=== PATIENT | female | born 1975 | race Caucasian/White ===

== ENCOUNTER 2019-02-10 05:58 | Inpatient (IN) | payer MEDICARE, MEDICAID ==
[2019-02-10 06:43] LABS: #Eosinphils 0.1 thou/uL (0.0-0.7); #Lymphocytes 2.9 thou/uL (1.20-3.40); #Monocytes 0.5 thou/uL (0.11-0.59); #Neutrophils 4.2 thou/uL (1.40-6.50); %Basophils 0.4 % (0.0-1.0); %Eosinophils 1.6 % (0.0-10.0); %Lymphocytes 37.4 % (21.0-51.0); %Monocytes 6.1 % (0.0-10.0); %Neutrophils 54.5 % (42.0-75.0); Hemoglobin 12.9 g/dL (12.0-16.0); Mean Corpuscular HGB CONC 34.6 g/dL (32.0-36.0); Mean Corpuscular Hemoglobin 30.1 pg (27.0-31.0); Mean Platelet Volume 7.6 fL (7.4-10.4); Platelet Count 286 thou/uL (130-400); RBC Distribution Width 13.2 % (11.5-14.5); Red Blood Cell (RBC) Count 4.27 mill/uL (4.20-5.40); White Blood Cell (WBC) Count 7.7 thou/uL (4.8-10.8)
[2019-02-10] MEDS ORDERED: Sodium Chloride 0.9% 10 ML ONE (06:57)
[2019-02-10 07:00] LABS: Anion Gap 9 mmol/L (10-20); BUN (Urea Nitrogen) 12 mg/dL (7.0-18.7); Calc. Creatinine Clearance 239 mL/min (70-130); Calcium 9.2 mg/dL (7.8-10.44); Carbon Dioxide 28 mmol/L (22-29); Chloride 105 mmol/L (98-107); Estimated GFR-MDRD 78; Glucose 79 mg/dL (70-105); Potassium 3.4 mmol/L (3.5-5.1); Sodium 139 mmol/L (136-145)
[2019-02-10] MEDS ORDERED: Fentanyl 100 MCG/2 ML VIAL ONE ×3 (07:42→09:59)
[2019-02-10] MEDS ORDERED: Ondansetron HCl/PF 4 MG/2 ML Vial IVP PRN ×2 (08:34→10:33)
[2019-02-10] MEDS ORDERED: Promethazine HCl 25 MG/ML VIAL IM PRN ×2 (08:34→09:37)
[2019-02-10] MEDS ORDERED: Meperidine HCl/PF 25 MG/ML VIAL SLOW IVP PRN (08:34)
[2019-02-10] MEDS ORDERED: Promethazine HCl 25 MG/ML VIAL SLOW IVP PRN (08:34)
[2019-02-10] MEDS ORDERED: Ondansetron PF 4 MG/2 ML Vial IM PRN (09:37)
[2019-02-10] MEDS ORDERED: Morphine 4 MG/ML VIAL SLOW IVP PRN ×2 (09:37→10:33)
[2019-02-10] MEDS ORDERED: Promethazine HCl 12.5 MG SUPP PR PRN (09:37)
[2019-02-10] MEDS ORDERED: diphenhydrAMINE 50 MG/ML VIAL IVP PRN (09:37)
[2019-02-10] MEDS ORDERED: diphenhydrAMINE 25 MG CAP PO PRN (09:37)
[2019-02-10] MEDS ORDERED: Mag-Al 1200 mg/1200 mg/30 ML UDCUP PO PRN (09:37)
[2019-02-10] MEDS ORDERED: Milk Of Magnesia 30 ML UDCUP PO PRN (09:37)
[2019-02-10] MEDS ORDERED: traMADol HCl 50 MG TAB PO PRN ×2 (09:37)
[2019-02-10] MEDS ORDERED: Promethazine 25 MG TAB PO PRN (09:37)
[2019-02-10] MEDS ORDERED: HYDROcodone/Acetaminophen 10/325 mg Tablet PO PRN (09:37)
[2019-02-10] MEDS ORDERED: tiZANidine HCl 4 MG TAB PO PRN (09:37)
[2019-02-10] MEDS ORDERED: Morphine 2 MG/ML SYRINGE SLOW IVP PRN (09:42)
[2019-02-10] MEDS ORDERED: Morphine 4 MG/ML VIAL ONE (09:45)
[2019-02-10] MEDS ORDERED: HYDROmorphone 2 MG/ML VIAL SLOW IVP PRN (10:33)
[2019-02-10] MEDS ORDERED: Morphine Sulfate 2 MG/ML SYRINGE SLOW IVP PRN (10:33)
[2019-02-10] MEDS ORDERED: Non-Formulary Medication 1 EACH PO PRN (10:33)
[2019-02-10] MEDS ORDERED: Promethazine HCl 25 MG/ML VIAL IM/IV PRN (10:33)
[2019-02-10] MEDS: HYDROcodone/Acetaminophen 10/325 mg Tablet PO PRN (11:03)
[2019-02-10] MEDS: Sodium Chloride 0.9% 1,000 ML IV SCH ×2 (11:05→23:49)
--- NOTE | 2019-02-10 15:15 | OP ---
DATE OF PROCEDURE: 02/10/2019 [employer] REPAIRER: Yosi Horvath PA-C. PROCEDURES PERFORMED: Right L4-L5 laminectomy, facetectomy, foraminotomy, and diskectomy; interbody arthrodesis; intervertebral biomechanical device; local morselized autograft; demineralized bone matrix; posterolateral arthrodesis; pedicle screw instrumentation L4-L5. DESCRIPTION OF PROCEDURE: The patient was brought to the operating room and intubated. She was rolled in a prone position on gel-filled chest rolls. An incision was made exposing L4 and L5, and the level was confirmed by x-ray. The procedure was very difficult given the patient's very large body habitus. X-rays were quite limited. After identifying the L4-L5 level, we performed a central laminectomy and right L4-L5 laminectomy, facetectomy, and foraminotomy. We identified copious amounts of far-lateral disk herniation in the right L4 neural foramen, which debrided multiple fragments and a complete decompression of right L4 was achieved. Disk itself was then incised and debrided, and the bony endplates decorticated for the purpose of arthrodesis. An appropriate-sized intervertebral biomechanical PEEK device was brought in the field. It was filled with demineralized bone matrix, local morselized autograft, and tapped in place securely at L4-L5. Next, pedicle screws were placed at right L4 and right L5 using lateral fluoroscopic guidance; although, the x-rays were extremely limited given the patient's large body habitus. The roberto was then secured between the screws, connected by nuts, which were final tightened. The wound was extensively irrigated. MAC hemostasis was secured. Combination of demineralized bone matrix and local morselized autograft was laid over the left lamina and posterolateral surfaces for the purpose of arthrodesis. Vancomycin powder was applied, and the wound was then closed in anatomic layers. Job ID: [id number]
[2019-02-10] MEDS: HYDROcodone/Acetaminophen 5/325 mg Tablet PO SCH ×2 (15:26→20:57)
[2019-02-10] MEDS: CEFAZOLIN 2 GM in Premix Bag 1 BAG IVPB SCH ×2 (15:27→22:40)
[2019-02-10 15:43] VITALS: BMI 62.3
[2019-02-10] MEDS ORDERED: Glycopyrrolate 0.2 MG/ML 5 ML SYRINGE ONE (16:31)
[2019-02-10] MEDS ORDERED: Lidocaine 1% PF 5 ML VIAL ONE (16:31)
[2019-02-10] MEDS ORDERED: Ondansetron PF 4 MG/2 ML Vial ONE (16:31)
[2019-02-10] MEDS ORDERED: PROPOFOL 200 MG/20 ML VIAL ONE (16:31)
[2019-02-10] MEDS ORDERED: Dexamethasone 20 MG/5 ML VIAL ONE (16:31)
[2019-02-10] MEDS ORDERED: Rocuronium Bromide 10 MG/ML (10ML VIAL) ONE (16:31)
--- NOTE | 2019-02-10 17:23 | EKG ---
Test Reason : PREOP Blood Pressure : / mmHG Vent. Rate : 063 BPM Atrial Rate : 063 BPM P-R Int : 158 ms QRS Dur : 100 ms QT Int : 448 ms P-R-T Axes : 033 047 045 degrees QTc Int : 458 ms Normal sinus rhythm Normal ECG Confirmed by KIAH ESCALONA, DR. Sharma ([id number]) on 02/10/2019 5:23:14 PM Referred By: [facility] Confirmed By:DR. Edith DUPONT MD
[2019-02-10] MEDS: Gabapentin 300 MG CAP PO SCH (20:57)
[2019-02-10] MEDS: tiZANidine HCl 4 MG TAB PO SCH (20:57)
[2019-02-10] MEDS ORDERED: Venlafaxine HCl XR 150 MG CAP PO SCH (21:00)
[2019-02-10] MEDS ORDERED: Bupropion 150 MG SR TAB PO SCH (21:00)
[2019-02-11] MEDS: HYDROcodone/Acetaminophen 10/325 mg Tablet PO PRN ×3 (03:53→12:25)
[2019-02-11] MEDS ORDERED: Levothyroxine Sodium 25 MCG TAB PO SCH (06:00)
[2019-02-11] MEDS ORDERED: Levothyroxine Sodium 112 MCG TAB PO SCH (06:00)
[2019-02-11] MEDS: tiZANidine HCl 4 MG TAB PO SCH (08:37)
[2019-02-11] MEDS: Gabapentin 300 MG CAP PO SCH (08:38)
[2019-02-11] MEDS: HYDROcodone/Acetaminophen 5/325 mg Tablet PO SCH (08:38)
[2019-02-11] MEDS ORDERED: Bupropion 150 MG SR TAB PO SCH (09:00)
[2019-02-11 11:16] VITALS: BP 107/66; TEMP 97.7
[2019-02-11] MEDS: Sodium Chloride 0.9% 1,000 ML IV SCH (12:27)
--- NOTE | 2019-02-11 14:54 | DIS ---
DATE OF ADMISSION: 02/10/2019 DATE OF DISCHARGE: 02/11/2019 HOSPITAL COURSE: The patient is a 43-year-old female, status post L4-L5 decompression and fusion. Following surgery, she was transitioned to the Med/Surg floor, where her pain has been well-controlled with p.o. medications, she is tolerating regular diet, and she is voiding appropriately. The patient has been up ambulating throughout the room with a walker. No incisional drainage issues overnight. She is awake, alert, in no acute distress. Free active range of all extremities. No focal motor weakness. No reflex asymmetry. We will plan to dismiss the patient to home. Her pain management physician at [facility] will be managing her postoperative pain medications. I have prescribed Keflex and script for rolling walker. Job ID: [id number]
== END 2019-02-11 13:09 | disposition home or self-care (01) | DRG 454 ==
LOC: SURG A 05:58
PROVIDERS: ADMIT Neurological Surgery; ATTEND Neurological Surgery
PROC: 0SG00AJ Fusion of Lumbar Vertebral Joint with Interbody Fusion Device, Posterior Approach, Anterior Column, Open Approach (ICD-10-PCS; principal; 2019-02-10)
PROC: 0SB20ZZ Excision of Lumbar Vertebral Disc, Open Approach (ICD-10-PCS; 2019-02-10)
PROC: 0SG0071 Fusion of Lumbar Vertebral Joint with Autologous Tissue Substitute, Posterior Approach, Posterior Column, Open Approach (ICD-10-PCS; 2019-02-10)
DX: M54.16 Radiculopathy, lumbar region (principal); Z68.44 Body mass index [BMI] 60.0-69.9, adult; I10 Essential (primary) hypertension; J44.9 Chronic obstructive pulmonary disease, unspecified; E11.9 Type 2 diabetes mellitus without complications; G47.00 Insomnia, unspecified; E03.9 Hypothyroidism, unspecified; M19.91 Primary osteoarthritis, unspecified site; E66.01 Morbid (severe) obesity due to excess calories; Z90.49 Acquired absence of other specified parts of digestive tract; Z86.73 Personal history of transient ischemic attack (TIA), and cerebral infarction without residual deficits
CPT/HCPCS: 76000; 80048; 85025; 93005; 93010; C1713; C1768; J0131; J0690; J1100; J2001; J2270; J2405; J2704; J3010; J3370; J3490

== ENCOUNTER 2025-08-24 05:56 | Inpatient (IN) | payer MEDICAID, MEDICARE ==
[2025-08-21 14:40] VITALS: BMI 34.9
[2025-08-24 06:57] LABS: #Basophils 0.04 10x3/uL (0.0-0.2); #Eosinophils 0.17 10x3/uL (0.0-0.7); #Monocytes 0.32 10x3/uL (0.11-0.59); #Neutrophils 2.17 10x3/uL (1.40-6.50); %Basophils 0.7 % (0.0-1.0); %Eosinophils 3.0 % (0.0-10.0); %Lymphocytes 51.6 % (21.0-51.0); %Monocytes 5.7 % (0.0-10.0); %Neutrophils 38.8 % (42.0-75.0); Hematocrit 41.1 % (36.0-47.0); Hemoglobin 13.1 g/dL (12.0-16.0); Mean Corpuscular Hemoglobin 30.0 pg (27.0-31.0); Mean Corpuscular Volume 94.1 fL (78.0-98.0); Platelet Count 281 10x3/uL (130-400); Red Blood Cell (RBC) Count 4.37 mill/uL (4.20-5.40); White Blood Cell (WBC) Count 5.60 10x3/uL (4.8-10.8)
[2025-08-24 07:08] LABS: Anion Gap 10 mmol/L (10-20); BUN (Urea Nitrogen) 15 mg/dL (7.0-18.7); Calc. Creatinine Clearance 148 mL/min (70-130); Calcium 9.3 mg/dL (7.8-10.44); Carbon Dioxide 27 mmol/L (22-29); Chloride 106 mmol/L (98-107); Glucose 80 mg/dL (70-105); Potassium 4.4 mmol/L (3.5-5.1); Sodium 139 mmol/L (136-145)
[2025-08-24] MEDS ORDERED: Lidocaine 1% PF 5 ML VIAL ONE (07:15)
[2025-08-24] MEDS ORDERED: Ondansetron PF 4 MG/2 ML Vial ONE (07:15)
[2025-08-24] MEDS ORDERED: fentaNYL PF 100 MCG/2 ML SYRINGE ONE ×3 (07:16→08:54)
[2025-08-24] MEDS ORDERED: Glycopyrrolate 0.2 MG/ML 5 ML SYRINGE ONE (07:19)
[2025-08-24] MEDS ORDERED: Lidocaine 2% 6 ML (Jelly) SYR ONE (07:19)
[2025-08-24] MEDS ORDERED: PHENYLEPHRINE-NS 100 MCG/ML 10 ML SYRINGE ONE (07:30)
[2025-08-24] MEDS ORDERED: PROPOFOL 200 MG/20 ML VIAL ONE (07:30)
[2025-08-24] MEDS ORDERED: Rocuronium Bromide 10 MG/ML (10ML VIAL) ONE (07:30)
[2025-08-24] MEDS ORDERED: SUGAMMADEX SODIUM 200 MG/2 ML VIAL ONE ×2 (08:04→08:09)
[2025-08-24] MEDS ORDERED: diphenhydrAMINE 50 MG/ML VIAL ONE (08:29)
[2025-08-24] MEDS ORDERED: HYDROmorphone 2 MG/ML VIAL ONE (08:40)
[2025-08-24] MEDS ORDERED: Cyclobenzaprine 10 MG TAB ONE (09:06)
[2025-08-24] MEDS ORDERED: Ketamine In 0.9 % NaCl 50 MG/5 ML SYRINGE ONE (09:21)
[2025-08-24] MEDS ORDERED: HYDROcodone/Acetaminophen 5/325 mg Tablet ONE (11:07)
== END 2025-08-24 12:12 | disposition home or self-care (01) | DRG 451 ==
LOC: SURG A 05:56
PROVIDERS: ADMIT Neurological Surgery; ATTEND Neurological Surgery
PROC: 0SP004Z Removal of Internal Fixation Device from Lumbar Vertebral Joint, Open Approach (ICD-10-PCS; principal; 2025-08-24)
PROC: 0SG0071 Fusion of Lumbar Vertebral Joint with Autologous Tissue Substitute, Posterior Approach, Posterior Column, Open Approach (ICD-10-PCS; 2025-08-24)
PROC: 3E0U0GB Introduction of Recombinant Bone Morphogenetic Protein into Joints, Open Approach (ICD-10-PCS; 2025-08-24)
DX: M48.062 Spinal stenosis, lumbar region with neurogenic claudication (principal); E03.9 Hypothyroidism, unspecified; G89.4 Chronic pain syndrome; E66.9 Obesity, unspecified; Z68.34 Body mass index [BMI] 34.0-34.9, adult; Z91.040 Latex allergy status; Z98.890 Other specified postprocedural states; Z98.84 Bariatric surgery status
CPT/HCPCS: 80048; 85025; C1713; C1889; J1100; J1171; J1200; J2405; J2550; J2704; J3010; J3373; J3490